=== PATIENT | female | born 1955 | race Caucasian/White ===

== ENCOUNTER → 2017-11-22 07:12 | Outpatient (CLI) | payer BC | END | disposition home or self-care (01) | LOC: D.RAD 07:12 | DX: D64.9 Anemia, unspecified (principal) ==

== ENCOUNTER → 2018-04-07 08:01 | Outpatient (CLI) | payer BC | END | disposition home or self-care (01) | LOC: D.CT 03-30 08:30 | DX: R10.9 Unspecified abdominal pain (principal); R93.8 Abnormal findings on diagnostic imaging of other specified body structures ==

== ENCOUNTER → 2018-04-12 17:08 | Outpatient (CLI) | payer BC ==
[2018-04-12 17:43] LABS: BASOPHILS 0.3 % (0-2); EOSINOPHILS 1.9 % (0-7); HEMATOCRIT 33.9 % (36.0-48.0); HEMOGLOBIN 10.5 g/dL (12-16); IMMATURE GRANULOCYTES 0.1 % (0-5); LYMPHOCYTES 29.7 % (15-50); MCH 24.1 pg (26.0-34.0); MCV 77.9 fL (80.0-100.0); MONOCYTES 8.1 % (2-11); NEUTROPHILS 59.9 % (40-80); PLATELET COUNT 389 10x3/uL (130-400); RBC 4.35 10x6/uL (4.00-5.40)
[2018-04-12 17:56] LABS: ALBUMIN 3.3 g/dL (3.4-5.0); ALKALINE PHOSPHATASE 100 U/L (46-116); ALT (SGPT) 15 U/L (10-68); BILIRUBIN - TOTAL 0.28 mg/dL (0.2-1.3); CALC OSMOLALITY 275 mosm/kg (275-300); CALCIUM 8.6 mg/dL (8.5-10.1); CARBON DIOXIDE 30.1 mmol/L (21.0-32.0); CHLORIDE - SERUM 103 mmol/L (98-107); CREATININE - SERUM 0.7 mg/dL (0.6-1.3); GLUCOSE 88 mg/dL (74-106); POTASSIUM - SERUM 3.9 mmol/L (3.5-5.1); PROTEIN - SERUM 7.8 g/dL (6.4-8.2); SODIUM 138 mmol/L (136-145); UREA NITROGEN 16 mg/dL (7-18); eGFR NON AFRICAN AMERICAN 90 mL/min (90-120)
[2018-04-12 18:36] LABS: ERYTHROCYTE SEDIMENTATION RATE 8 mm/hr (0-30)
== END | disposition home or self-care (01) ==
LOC: D.LAB 10:15
PROVIDERS: Internal Medicine Gastroenterology
DX: K52.9 Noninfective gastroenteritis and colitis, unspecified (principal); R10.9 Unspecified abdominal pain

== ENCOUNTER 2018-06-07 05:11 | Inpatient (IN) | payer BC ==
[~2018-06-07] VITALS: Ht 157.5 cm; Wt 114.2 kg
[2018-06-07] VITALS (15 sets, daily range): BP systolic 78–127; BP diastolic 43–88; BMI 38.8; BMI 39.6
--- NOTE | ~2018-06-07 | MORECARE ---
CASE MANAGEMENT DISCHARGE SUMMARY PATIENT: AUTUMN DEY UNIT: [id number] ADM DATE: 06/07/18 AGE: 63 : 55 SEX: F ROOM/BED: D.2227 AUTHOR: SHWETHA,DOC PHYSICIAN: REFERRING PHYSICIAN: ELLIOTT ODONNELL MD DATE OF SERVICE: 06/19/18 Discharge Plan Patient Name: AUTUMN DEY Facility: [facility]:[place] : 1955 Planned Disposition: Home with Home Health Anticipated Discharge Date: Discharge Date: Expected LOS: Initial Reviewer: [email or web address] Initial Review Date: 06/12/2018 Generated: 06/19/18 12:00 pm Comments DCP- Discharge Planning Updated by [email or web address]: Juany Garrido on 06/19/18 9:[address] Received order for discharge. Her sister is in the room. Patient and sister agree with discharging home today with [facility] health services. I spoke with Linda at [facility] and informed. I spoke with Deepthi with wound care and she will change dressing and place home wound vac prior to discharge. CM will continue to follow and assist with discharge planning/needs. To discharge home today with home health. DCP- Discharge Planning Updated by [email or web address]: Juany Garrido on 06/13/18 1:[address] Received approval for home wound vac. Copy of form given to patient, patient signed original. Called [employer] in materials called for home wound vac (serial number [id number]. Form faxed to [facility] and materials. CM will continue to follow and assist with discharge planning/needs. DCP- Discharge Planning Updated by [email or web address]: Teresita Cardoso on 06/12/18 3:[address] Patient Name: AUTUMN DEY Admission Status: Elective Accout number: [id number] Admission Date: 06-07-2018 : 1955 Admission Diagnosis: Attending: ELLIOTT ODONNELL Current LOS: 5 Anticipated DC Date: Planned Disposition: Home with Home Health Primary Insurance: [employer] O Discharge Planning Comments: CM met with patient to assess discharge planning needs. Patient stated that she lives home alone independently in [place]. She plans to return there at discharge, but stated that her sister will be there to stay with her when she DC. She has a glucometer at home. She will need a home wound vac. I have sent the paperwork to Hernan with [facility]. MAYLIN for home health with [facility]. MAYLIN form placed in chart. I spoke with Linda at [facility] they will put her on for services to start service on Tuesday. CM will continue to follow and assist with DC planning as needed. Ginger Farmer: Teresita Cardoso DCP- Discharge Planning Updated by [email or web address]: Teresita Cardoso on 06/12/18 2:[address] SENT CLINICAL INFORMATION AND ORDER TO [facility] FOR HOME WOUND VAC, PER DR BYRD REQUEST DCPIA - Discharge Planning Initial Assessment Updated by [email or web address]: Teresita Cardoso on 06/12/18 3:07 pm * Is the patient Alert and Oriented? Yes * How many steps to enter\exit or inside your home? * PCP ED * Pharmacy [facility] IN [place] * Preadmission Environment Home Alone * ADLs Independent * Equipment Glucometer * List name and contact numbers for known caregivers / representatives who currently or will assist patient after discharge: ARIS VIERA [phone] * Community resources currently utilized None * Additional services required to return to the preadmission environment? Yes * Can the patient safely return to the preadmission environment? Yes * Has this patient been hospitalized within the prior 30 days at any hospital? No Last DP export: 06/13/18 1:18 Patient Name: AUTUMN DEY Page [id number] at 1100 All edits/amendments must be made on the electronic document DICTATION DATE: 06/19/18 1100 RESIDENTIAL COUNSELOR: OMAYRA 06/19/18 1100 RPT#: [id number] DC DATE: STATUS: ADM IN [facility] [address] [place] [address] END OF REPORT
--- NOTE | ~2018-06-07 | OP ---
PATIENT NAME: AUTUMN DEY MEDICAL RECORD: [id number] :55 LOCATION:[facility] D.2308 ADMISSION DATE:06/07/18 SURGEON: ELLIOTT ODONNELL MD DATE OF OPERATION: 06/07/2018 SURGEON: Elliott Odonnell MD ELECTRICAL ENGINEERING INTERN: Jaja Quintanilla APN PREOPERATIVE DIAGNOSES: Abdominal pain, adhesions, history of multiple incisional hernia repairs. 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 PROCEDURE PERFORMED: Exploratory laparotomy, small bowel resection times 3, explantation of infected mesh, temporary abdominal closure with ABThera wound VAC, gastrostomy tube placement. ANESTHESIA: General. COMPLICATIONS: None. SPECIMENS: Small bowel resection times 3, explantation of infected abdominal wall mesh. Case was grossly contaminated. ESTIMATED BLOOD LOSS: 400 cc. OPERATIVE COURSE: After consent was obtained, the patient was taken to the operating room and placed in supine position on the operating table. Next, general anesthesia was given via endotracheal intubation. Thereafter a timeout was performed to confirm the correct patient and procedure. Abdomen was prepped and draped in typical sterile fashion. Ioban dressing was placed. Midline incision was made with an 11-blade scalpel in the lower midline from the umbilicus to the pubic tubercle. Dissection continued to subcutaneous tissue using electrocautery. Once the fascia was identified, an incision was made with electrocautery. The peritoneum was incised and grasped and incised with Metzenbaum scissors. The main portion of the incision was then opened with electrocautery. Extensive lysis of adhesions was performed. Immediately encountered was pus and succuss. There was a large well encased abscess with small bowel fistula to the abdominal wall mesh. There were 4 areas of easily identifiable fistula to the abdominal wall mesh. The mesh was meticulously dissected off the anterior abdominal wall using sharp scissor dissection. The abscess pocket was drained. The mesh was excised from the small bowel and sent for permanent pathology. At this time, extensive lysis of adhesions was performed from the ligament of Treitz to the ileocecal valve. Once the bowel was mobilized and extracorporealized, the large fistula was evaluated. There were 3 loops of bowel involved within the fistula with open fistula tracts. At this time, small bowel resections were performed in series until the area of fistula bowel was completely excised. The patient had a total of 3 small bowel resections, totaling 75 cm of small bowel. At this time, the small bowel was run from the ligament of Treitz to the ileocecal valve. All serosal defects were repaired. All small bowel anastomosis had been performed with the linear OPERATIVE REPORT [id number] AUTUMN DEY cutting KEVIN stapler with green load janine in a [id number] fashion. All anastomotic suture lines were imbricated using 3-0 Vicryl suture. All serosal defects were repaired using 3-0 Vicryl suture. The abdomen was then copiously irrigated with saline and iodine. It was further washed out with an additional 3 liters of warm normal saline. There was no evidence of bleeding, no evidence of succuss. At this time, a gastrostomy tube was placed into the left upper quadrant. Small stab skin incision was made with electrocautery. An 18-Serbian gastrostomy tube was delivered to the anterior abdominal wall under direct vision. A gastrotomy was made. A pursestring suture was made with an 0 silk suture. The tube was passed through the gastrotomy. The pursestring suture was tied. The balloon was inflated. The anterior portion of the stomach was then sutured to the anterior abdominal wall using 0 silk suture. At this time, due to the extensive contamination throughout the abdominal cavity as well as open small bowel fistulas with active succuss in the abdominal cavity, it was decided to perform a delayed abdominal closure. The abdomen was packed with the ABThera open VAC wound system. The patient was transferred to the ICU in critical condition with plans for a return trip to the OR in 24 hours for delayed abdominal closure and additional abdominal washout. TRANSINT:[id number] Voice Confirmation ID: [id number] DOCUMENT ID: [id number] ELLIOTT ODONNELL MD at 1412 CC: [id number] DICTATION DATE: 06/07/18 1248 POINT OF SALE ASSOCIATE: 06/07/18 1306 ADM IN [place] [id number] [place] [address]
--- NOTE | ~2018-06-07 | MORECARE ---
CASE MANAGEMENT DISCHARGE SUMMARY PATIENT: AUTUMN DEY UNIT: [id number] ADM DATE: 06/07/18 AGE: 63 : 55 SEX: F ROOM/BED: D.2227 AUTHOR: JENNY TADEO PHYSICIAN: REFERRING PHYSICIAN: ELLIOTT ODONNELL MD DATE OF SERVICE: 06/12/18 Discharge Plan Patient Name: AUTUMN DEY [facility] [facility] 1955 Planned Disposition: Anticipated Discharge Date: Discharge Date: Expected LOS: Initial Reviewer: [email or web address] Initial Review Date: 06/07/2018 Generated: 06/12/18 3:30 pm Comments DCP- Discharge Planning Updated by [email or web address]: Teresita Cardoso on 06/12/18 1:[address] SENT CLINICAL INFORMATION AND ORDER TO [facility] FOR HOME WOUND VAC, PER DR BYRD REQUEST External Providers External Provider: [facility] [employer] Next Contact Date: Service Request Date: Service Type: Resolution: Reviewer: Comments: Last DP export: 06/07/18 2:19 Patient Name: AUTUMN DEY Page 90970 at 1430 All edits/amendments must be made on the electronic document DICTATION DATE: 06/12/181428 ACADEMIC COUNSELOR: OMAYRA 06/12/181428 RPT#: [id number] DC DATE: STATUS: ADM IN [facility] [address] [place] [address] END OF REPORT
--- NOTE | ~2018-06-07 | DS ---
PATIENT:AUTUMN DEY :55 MEDICAL RECORD: [id number] DISCHARGE SUMMARY ADMISSION DATE: 06/07/18 DISCHARGE DATE: 06/19/18 DATE OF ADMISSION: 06/07/2018 DATE OF DISCHARGE: 06/19/2018 ADMITTING PHYSICIAN: Elliott Odonnell MD DISCHARGE PHYSICIAN: Elliott Odonnell MD ADMITTING DIAGNOSES: Ventral incisional abdominal hernia, incarcerated. POSTOPERATIVE DIAGNOSIS: Recurrent incarcerated ventral hernia and multiple enteric fistula. DISCHARGE DIAGNOSES: 1. Sepsis. 2. 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 3. Post-procedure respiratory failure. 4. Intestinal fistula. 5. Acute kidney injury. 6. Diabetes. HOSPITAL COURSE: The patient was admitted to the hospital for an elective incisional hernia repair. During the operation, the patient was found to have an intra-abdominal abscess contained abscess with open draining enteric fistulas of the small bowel to the abdominal wall hernia mesh. Please see procedure notes for full details of the procedure. In short, there was explantation of infected mesh, small bowel resection times 4 to incorporate resection of all open draining enteric fistula. During the operation Strata Phasix onlay mesh was used for closure of the midline abdominal incisional defect. A wound VAC was placed. A feeding tube was placed. The patient was transferred to the ICU on the ventilator in stable condition. Her postoperative course was without complication. Over the next 48 hours, she was extubated. She was subsequently transferred to the floor. Postoperative CT scan showed no signs of abscess or leak. She was started on a clear liquid diet and advance as tolerated. She was seen and evaluated by physical therapy. She was treated with IV antibiotics. Nephrology was consulted for an acute kidney injury which resolved with IV fluid hydration and discontinuation and nephrotoxic medications. At the time of discharge, the patient was ambulating independently. Her pain was well controlled on oral pain medicines. She was tolerating her diet with normal bowel function. Home health was consulted for home health PT and wound VAC care. DISCHARGE MEDICATIONS: Please see electronic medical record. DISCHARGE INSTRUCTIONS: Diet as tolerated. DISCHARGE ACTIVITY: No heavy lifting or strenuous activity for 6 weeks. Otherwise, activity as tolerated. Stairs allowed. DISPOSITION: Home health for wound VAC placement. Tuesday, Tuesday, Tuesday. DISCHARGE SUMMARY REPORT [id number] AUTUMN DEY FOLLOWUP: With Dr. Odonnell in 2 weeks. TRANSINT:[id number] Voice Confirmation ID: [id number] DOCUMENT ID: [id number] ELLIOTT ODONNELL MD at 1019 CC: [id number] DICTATION DATE: 07/03/18 1333 [employer]: 07/04/18 0152 DIS IN 06/19/18 [facility] [address] [place] [id number]
--- NOTE | ~2018-06-07 | MORECARE ---
CASE MANAGEMENT DISCHARGE SUMMARY PATIENT: AUTUMN DEY UNIT: [id number] ADM DATE: 06/07/18 AGE: 63 : 55 SEX: F ROOM/BED: D.2308 AUTHOR: JENNY TADEO PHYSICIAN: REFERRING PHYSICIAN: ELLIOTT ODONNELL MD DATE OF SERVICE: 06/07/18 Discharge Plan Patient Name: AUTUMN DEY [facility] [facility] 1955 Planned Disposition: Anticipated Discharge Date: Discharge Date: Expected LOS: Initial Reviewer: [email or web address] Initial Review Date: 06/07/2018 Generated: 06/07/18 4:19 pm Patient Name: AUTUMN DEY Page 39193 at 1519 All edits/amendments must be made on the electronic document DICTATION DATE: 06/07/181517 GLOVE PARTS CUTTER: OMAYRA 06/07/181517 RPT#: [id number] DC DATE: STATUS: ADM IN [facility] [address] [place] [address] END OF REPORT
--- NOTE | ~2018-06-07 | MORECARE ---
CASE MANAGEMENT DISCHARGE SUMMARY PATIENT: AUTUMN DEY UNIT: [id number] ADM DATE: 06/07/18 AGE: 63 : 55 SEX: F ROOM/BED: D.2227 AUTHOR: SHWETHA,DOC PHYSICIAN: REFERRING PHYSICIAN: ELLIOTT ODONNELL MD DATE OF SERVICE: 06/20/18 Discharge Plan Patient Name: AUTUMN DEY Facility: [facility]:[place] : 1955 Planned Disposition: Home with Home Health Anticipated Discharge Date: Discharge Date: 06/19/2018 Expected LOS: 0 Initial Reviewer: [email or web address] Initial Review Date: 06/12/2018 Generated: 06/20/18 10:09 am Comments DCP- Discharge Planning Updated by [email or web address]: Juany Garrido on 06/19/18 9:[address] Received order for discharge. Her sister is in the room. Patient and sister agree with discharging home today with [facility] health services. I spoke with Linda at [facility] and informed. I spoke with Deepthi with wound care and she will change dressing and place home wound vac prior to discharge. CM will continue to follow and assist with discharge planning/needs. To discharge home today with home health. DCP- Discharge Planning Updated by [email or web address]: Juany Moonjennifer on 06/13/18 1:[address] Received approval for home wound vac. Copy of form given to patient, patient signed original. Called [employer] in materials called for home wound vac (serial number [id number]. Form faxed to [facility] and [employer]. CM will continue to follow and assist with discharge planning/needs. DCP- Discharge Planning Updated by [id number]: Teresita Cardoso on 06/12/18 3:[address] Patient Name: AUTUMN DEY Admission Status: Elective Accout number: [id number] Admission Date: 06-07-2018 : 1955 Admission Diagnosis: Attending: ELLIOTT ODONNELL Current LOS: 5 Anticipated DC Date: Planned Disposition: Home with Home Health Primary Insurance: [employer] [facility] Discharge Planning Comments: CM met with patient to assess discharge planning needs. Patient stated that she lives home alone independently in [place]. She plans to return there at discharge, but stated that her sister will be there to stay with her when she DC. She has a glucometer at home. She will need a home wound vac. I have sent the paperwork to Hernan with [facility]. [place] for home health with [facility]. MAYLIN form placed in chart. I spoke with Linda at [facility] they will put her on for services to start service on Tuesday. CM will continue to follow and assist with DC planning as needed. Pattern Hand: Teresita Cardoso DCP- Discharge Planning Updated by [email or web address]: Teresita Cardoso on 06/12/18 2:[address] SENT CLINICAL INFORMATION AND ORDER TO [facility] FOR HOME WOUND VAC, PER DR BYRD REQUEST DCPIA - Discharge Planning Initial Assessment Updated by [email or web address]: Teresita Cardoso on 06/12/18 3:07 pm * Is the patient Alert and Oriented? Yes * How many steps to enter\exit or inside your home? * PCP ED * Pharmacy [facility] IN [place] * Preadmission Environment Home Alone * ADLs Independent * Equipment Glucometer * List name and contact numbers for known caregivers / representatives who currently or will assist patient after discharge: ARIS VIERA [phone] * Community resources currently utilized None * Additional services required to return to the preadmission environment? Yes * Can the patient safely return to the preadmission environment? Yes * Has this patient been hospitalized within the prior 30 days at any hospital? No Last DP export: 06/19/18 10:00 a Patient Name: AUTUMN DEY Page 49565 at 0910 All edits/amendments must be made on the electronic document DICTATION DATE: 06/20/18908 RUBBER MILL TENDER: OMAYRA 06/20/18908 RPT#: [id number] DC DATE:06/19/18 STATUS: DIS IN [facility] [address] [place] [address] END OF REPORT
--- NOTE | ~2018-06-07 | OP ---
PATIENT NAME: AUTUMN DEY MEDICAL RECORD: [id number] :55 LOCATION:[facility] D.2308 ADMISSION DATE:06/07/18 SURGEON: ELLIOTT ODONNELL MD DATE OF OPERATION: 06/08/2018 SURGEON: Elliott Odonnell MD PREOPERATIVE DIAGNOSES: 1. Open abdomen. 2. History of multiple enteric fistulas with intra-abdominal sepsis. POSTOPERATIVE DIAGNOSES: 1. Open abdomen. 2. History of multiple enteric fistulas with intra-abdominal sepsis. PROCEDURES PERFORMED: 1. Abdominal washout. 2. Removal of ABThera wound VAC. 3. Delayed primary abdominal wall closure with Phasix mesh. Case was clean. ESTIMATED BLOOD LOSS: 100 cc. OPERATIVE COURSE: After consent was obtained, the patient was taken from the ICU, ventilated to the operating room and placed in supine position on the operating table. General anesthesia was given. A time-out was taken to confirm the correct patient and procedure. The ABThera wound VAC was removed. The abdomen was prepped and draped in a typical sterile fashion. A time-out was taken to confirm the correct patient and procedure. The wound was then copiously irrigated with 4 liters of warm normal saline. The small bowel was run from the ligament of Treitz to the ileocecal valve gently with meticulous inspection. There was no serosal defect. All previous small bowel anastomosis appeared intact. There was no evidence of succuss or leak. Next, 2 WILTON drains were placed into both the right and left lower quadrants. The left lower quadrant WILTON drain was placed into the pelvis. The right WILTON drain was placed along the right pericolic gutter and around the liver. At this time, the abdomen was irrigated with half Betadine, half normal saline. Next, the subcutaneous tissue was dissected off the external fascia 5 cm in all directions creating subcutaneous tissue flaps. A FISH was inserted. The midline fascia was closed with #1 looped PDS. A WILTON drain was secured to skin using 2-0 nylon suture. A 4 x 6-inch Phasix mesh was placed in an onlay fashion onto the anterior fascia and secured with 3-0 Vicryl suture. The skin was reapproximated using janine. A small portion in the midline was left open. A silver sponge was placed through the opening and directly onto the mesh. It was placed to suction with good seal. The WILTON drains were connected to bulb suction. At the end the case, all needle and instrument counts were correct. The patient was transferred to the ICU in guarded condition. TRANSINT:[id number] Voice Confirmation ID: [id number] DOCUMENT ID: [id number] OPERATIVE REPORT [id number] AUTUMN DEY,ELLIOTT Landaverde MD at 2126 CC: [id number] DICTATION DATE: 06/08/18 1351 VISUAL DISPLAY MANAGER: 06/08/18 1407 ADM IN [place] [id number] [place] [id number]
--- NOTE | ~2018-06-07 | MORECARE ---
CASE MANAGEMENT DISCHARGE SUMMARY PATIENT: AUTUMN DEY UNIT: [id number] ADM DATE: 06/07/18 AGE: 63 : 55 SEX: F ROOM/BED: D.2227 AUTHOR: SHWETHA,DOC PHYSICIAN: REFERRING PHYSICIAN: ELLIOTT ODONNELL MD DATE OF SERVICE: 06/12/18 Discharge Plan Patient Name: AUTUMN DEY Facility: [facility]:[place] : 1955 Planned Disposition: Home with Home Health Anticipated Discharge Date: Discharge Date: Expected LOS: Initial Reviewer: [email or web address] Initial Review Date: 06/12/2018 Generated: 06/12/18 4:12 pm Comments DCP- Discharge Planning Updated by [id number]: Teresita Cardoso on 06/12/18 2:[address] Patient Name: AUTUMN DEY Admission Status: Elective Accout number: [id number] Admission Date: 06-07-2018 : 1955 Admission Diagnosis: Attending: ELLIOTT ODONNELL Current LOS: 5 Anticipated DC Date: Planned Disposition: Home with Home Health Primary Insurance: [employer] O Discharge Planning Comments: CM met with patient to assess discharge planning needs. Patient stated that she lives home alone independently in [place]. She plans to return there at discharge, but stated that her sister will be there to stay with her when she DC. She has a glucometer at home. She will need a home wound vac. I have sent the paperwork to [facility] with [facility]. [facility] for home health with [facility]. MAYLIN form placed in chart. I spoke with Linda at [facility] they will put her on for services to start service on Tuesday. CM will continue to follow and assist with DC planning as needed. Family Educator: Teresita Cardoso DCP- Discharge Planning Updated by [email or web address]: Teresita Cardoso on 06/12/18 1:[address] SENT CLINICAL INFORMATION AND ORDER TO [facility] FOR HOME WOUND VAC, PER DR BYRD REQUEST DCPIA - Discharge Planning Initial Assessment Updated by [email or web address]: Teresita Cardoos on 06/12/18 3:07 pm * Is the patient Alert and Oriented? Yes * How many steps to enter\exit or inside your home? * PCP ED * Pharmacy [facility] IN [place] * Preadmission Environment Home Alone * ADLs Independent * Equipment Glucometer * List name and contact numbers for known caregivers / representatives who currently or will assist patient after discharge: ARIS VIERA [phone] * Community resources currently utilized None * Additional services required to return to the preadmission environment? Yes * Can the patient safely return to the preadmission environment? Yes * Has this patient been hospitalized within the prior 30 days at any hospital? No External Providers External Provider: [employer] Next Contact Date: Service Request Date: Service Type: Resolution: Reviewer: Comments: Last DP export: 06/12/18 1:30 Patient Name: AUTUMN DEY Page 78021 at 1512 All edits/amendments must be made on the electronic document DICTATION DATE: 06/12/181511 REINFORCED IRONWORKER: OMAYRA 06/12/181511 RPT#: [id number] DC DATE: STATUS: ADM IN [facility] [address] [place] [address] END OF REPORT
--- NOTE | ~2018-06-07 | MORECARE ---
CASE MANAGEMENT DISCHARGE SUMMARY PATIENT: AUTUMN DEY UNIT: [id number] ADM DATE: 06/07/18 AGE: 63 : 55 SEX: F ROOM/BED: D.2227 AUTHOR: SHWETHA,DOC PHYSICIAN: REFERRING PHYSICIAN: ELLIOTT ODONNELL MD DATE OF SERVICE: 06/13/18 Discharge Plan Patient Name: AUTUMN DEY Facility: [facility]:[place] : 1955 Planned Disposition: Home with Home Health Anticipated Discharge Date: Discharge Date: Expected LOS: Initial Reviewer: [email or web address] Initial Review Date: 06/12/2018 Generated: 06/13/18 2:18 pm Comments DCP- Discharge Planning Updated by [email or web address]: Juany Garrido on 06/13/18 12:[address] Received approval for home wound vac. Copy of form given to patient, patient signed original. Called [employer] called for home wound vac (serial number [id number]. Form faxed to [facility] and [employer]. CM will continue to follow and assist with discharge planning/needs. DCP- Discharge Planning Updated by [email or web address]: Teresita Cardoso on 06/12/18 2:[address] Patient Name: AUTUMN DEY Admission Status: Elective Accout number: [id number] Admission Date: 06-07-2018 : 1955 Admission Diagnosis: Attending: ELLIOTT ODONNELL Current LOS: 5 Anticipated DC Date: Planned Disposition: Home with Home Health Primary Insurance: [employer] [facility] [place]charge Planning Comments: CM met with patient to assess discharge planning needs. Patient stated that she lives home alone independently in [place]. She plans to return there at discharge, but stated that her sister will be there to stay with her when she DC. She has a glucometer at home. She will need a home wound vac. I have sent the paperwork to Hernan with [facility]. [place] for home health with [facility]. [facility] form placed in chart. I spoke with Linda at [facility] they will put her on for services to start service on Tuesday. CM will continue to follow and assist with DC planning as needed. Director Visual: Teresita Cardoso DCP- Discharge Planning Updated by [email or web address]: Teresita Cardoso on 06/12/18 1:[address] SENT CLINICAL INFORMATION AND ORDER TO [facility] FOR HOME WOUND VAC, PER DR BYRD REQUEST DCPIA - Discharge Planning Initial Assessment Updated by [email or web address]: Teresita Cardoso on 06/12/18 3:07 pm * Is the patient Alert and Oriented? Yes * How many steps to enter\exit or inside your home? * PCP ED * Pharmacy [facility] IN [place] * Preadmission Environment Home Alone * ADLs Independent * Equipment Glucometer * List name and contact numbers for known caregivers / representatives who currently or will assist patient after discharge: ARIS VIERA [phone] * Community resources currently utilized None * Additional services required to return to the preadmission environment? Yes * Can the patient safely return to the preadmission environment? Yes * Has this patient been hospitalized within the prior 30 days at any hospital? No Last DP export: 06/12/18 2:12 Patient Name: AUTUMN DEY Page [id number] at 1318 All edits/amendments must be made on the electronic document DICTATION DATE: 06/13/18 131 SUPERVISOR ACCOUNTING CLERKS: OMAYRA 06/13/18 131 RPT#: [id number] [place] DATE: STATUS: ADM IN [facility] [address] [place] [address] END OF REPORT
[~2018-06-07 05:11] MED LIST: AREDS PO; ASCORBIC ACID500 MG PO; CALCIUM 600 +1 EAC3 PO; FERREX 28 TABL1 EACH PO; GLUCOPHAGE500 MG PO; RANITIDINE HCL150 M1 PO; SYNTHROID112 MCG PO; TUMERIC PO; VITAMIN B-121000 MCG PO; ZESTORETIC 20-1 EACH PO; ZOCOR40 MG PO
[2018-06-07 05:29] LABS: HEMATOCRIT 37.9 % (36.0-48.0); HEMOGLOBIN 12.1 g/dL (12-16); MCH 26.4 pg (26.0-34.0); MCHC 31.9 g/dL (31.0-37.0); MCV 82.6 fL (80.0-100.0); RBC 4.59 10x6/uL (4.00-5.40); RDW 19.7 % (11.5-14.5); WBC 12.5 10x3/uL (4.8-10.8)
[2018-06-07 05:51] LABS: CALC OSMOLALITY 278 mosm/kg (275-300); CALCIUM 9.6 mg/dL (8.5-10.1); CARBON DIOXIDE 28.8 mmol/L (21.0-32.0); CHLORIDE - SERUM 101 mmol/L (98-107); CREATININE - SERUM 0.8 mg/dL (0.6-1.3); POTASSIUM - SERUM 4.2 mmol/L (3.5-5.1); SODIUM 139 mmol/L (136-145); UREA NITROGEN 9 mg/dL (7-18); eGFR NON AFRICAN AMERICAN 77 mL/min (90-120)
[2018-06-07 05:58] LABS: GLUCOSE 143 mg/dL (74-106)
[2018-06-08] VITALS (23 sets, daily range): BP systolic 87–119; BP diastolic 56–666; BMI 39.5
[2018-06-08 04:12] LABS: HEMATOCRIT 37.2 % (36.0-48.0); HEMOGLOBIN 11.7 g/dL (12-16); MCH 26.5 pg (26.0-34.0); MCHC 31.5 g/dL (31.0-37.0); MCV 84.2 fL (80.0-100.0); MEAN PLATELET VOLUME 9.3 fL (7.4-10.4); PLATELET COUNT 470 10x3/uL (130-400); RBC 4.42 10x6/uL (4.00-5.40); RDW 20.1 % (11.5-14.5); WBC 22.9 10x3/uL (4.8-10.8)
[2018-06-08 04:32] LABS: ALBUMIN 1.7 g/dL (3.4-5.0); ANION GAP 18.6 mmol/L (8-16); BILIRUBIN - TOTAL 0.46 mg/dL (0.2-1.3); CALCIUM 7.2 mg/dL (8.5-10.1); CARBON DIOXIDE 23.2 mmol/L (21.0-32.0); MAGNESIUM - SERUM 1.5 mg/dL (1.8-2.4); PHOSPHOROUS 4.1 mg/dL (2.5-4.9); POTASSIUM - SERUM 4.8 mmol/L (3.5-5.1); PROTEIN - SERUM 4.7 g/dL (6.4-8.2)
[2018-06-08 04:33] LABS: CREATININE - SERUM 1.1 mg/dL (0.6-1.3)
[2018-06-08 05:13] LABS: LYMPHOCYTES 21 % (15-50); MONOCYTES 5 % (2-11); NEUTROPHILS 55 % (40-80); PLATELET ESTIMATE NORMAL
[2018-06-09] VITALS (24 sets, daily range): BP systolic 90–119; BP diastolic 60–94
[2018-06-09 04:41] LABS: BASOPHILS 0.1 % (0-2); EOSINOPHILS 0.1 % (0-7); HEMATOCRIT 30.5 % (36.0-48.0); HEMOGLOBIN 9.4 g/dL (12-16); IMMATURE GRANULOCYTES 0.5 % (0-5); LYMPHOCYTES 7.8 % (15-50); MCH 25.5 pg (26.0-34.0); MCHC 30.8 g/dL (31.0-37.0); MCV 82.9 fL (80.0-100.0); MEAN PLATELET VOLUME 9.2 fL (7.4-10.4); MONOCYTES 2.7 % (2-11); NEUTROPHILS 88.8 % (40-80); RBC 3.68 10x6/uL (4.00-5.40); RDW 20.5 % (11.5-14.5); WBC 19.7 10x3/uL (4.8-10.8)
[2018-06-09 04:46] LABS: PLATELET COUNT 351 10x3/uL (130-400)
[2018-06-09 04:59] LABS: CALC OSMOLALITY 288 mosm/kg (275-300); CALCIUM 7.3 mg/dL (8.5-10.1); CARBON DIOXIDE 25.3 mmol/L (21.0-32.0); CHLORIDE - SERUM 111 mmol/L (98-107); GLUCOSE 156 mg/dL (74-106); SODIUM 144 mmol/L (136-145); UREA NITROGEN 11 mg/dL (7-18)
[2018-06-09 05:02] LABS: CREATININE - SERUM 0.8 mg/dL (0.6-1.3); MAGNESIUM - SERUM 2.1 mg/dL (1.8-2.4); PHOSPHOROUS 2.3 mg/dL (2.5-4.9); eGFR NON AFRICAN AMERICAN 77 mL/min (90-120)
[2018-06-10] VITALS (24 sets, daily range): BP systolic 92–168; BP diastolic 58–94
[2018-06-10 05:20] LABS: BASOPHILS 0.1 % (0-2); EOSINOPHILS 0.9 % (0-7); HEMATOCRIT 25.6 % (36.0-48.0); HEMOGLOBIN 7.9 g/dL (12-16); IMMATURE GRANULOCYTES 0.4 % (0-5); LYMPHOCYTES 9.2 % (15-50); MCH 25.7 pg (26.0-34.0); MCHC 30.9 g/dL (31.0-37.0); MCV 83.4 fL (80.0-100.0); MEAN PLATELET VOLUME 9.2 fL (7.4-10.4); NEUTROPHILS 86.4 % (40-80); PLATELET COUNT 319 10x3/uL (130-400); RBC 3.07 10x6/uL (4.00-5.40); RDW 20.5 % (11.5-14.5); WBC 17.5 10x3/uL (4.8-10.8)
[2018-06-10 05:33] LABS: CALC OSMOLALITY 287 mosm/kg (275-300); CALCIUM 7.8 mg/dL (8.5-10.1); CARBON DIOXIDE 26.3 mmol/L (21.0-32.0); CHLORIDE - SERUM 112 mmol/L (98-107); CREATININE - SERUM 0.7 mg/dL (0.6-1.3); GLUCOSE 141 mg/dL (74-106); POTASSIUM - SERUM 3.8 mmol/L (3.5-5.1); SODIUM 144 mmol/L (136-145); UREA NITROGEN 11 mg/dL (7-18); eGFR NON AFRICAN AMERICAN 90 mL/min (90-120)
[2018-06-11] VITALS (24 sets, daily range): BP systolic 113–157; BP diastolic 71–97
[2018-06-11 04:53] LABS: BASOPHILS 0.1 % (0-2); EOSINOPHILS 1.2 % (0-7); HEMATOCRIT 25.5 % (36.0-48.0); HEMOGLOBIN 7.8 g/dL (12-16); IMMATURE GRANULOCYTES 0.4 % (0-5); MCH 25.4 pg (26.0-34.0); MCHC 30.6 g/dL (31.0-37.0); MCV 83.1 fL (80.0-100.0); MONOCYTES 5.8 % (2-11); NEUTROPHILS 80.5 % (40-80); PLATELET COUNT 304 10x3/uL (130-400); RBC 3.07 10x6/uL (4.00-5.40); RDW 20.2 % (11.5-14.5); WBC 14.1 10x3/uL (4.8-10.8)
[2018-06-11 05:02] LABS: CALC OSMOLALITY 287 mosm/kg (275-300); CALCIUM 7.9 mg/dL (8.5-10.1); CARBON DIOXIDE 28.4 mmol/L (21.0-32.0); CHLORIDE - SERUM 112 mmol/L (98-107); CREATININE - SERUM 0.7 mg/dL (0.6-1.3); GLUCOSE 112 mg/dL (74-106); MAGNESIUM - SERUM 1.9 mg/dL (1.8-2.4); POTASSIUM - SERUM 3.7 mmol/L (3.5-5.1); SODIUM 145 mmol/L (136-145); eGFR NON AFRICAN AMERICAN 90 mL/min (90-120)
[2018-06-11 05:05] LABS: PHOSPHOROUS 3.5 mg/dL (2.5-4.9); UREA NITROGEN 7 mg/dL (7-18)
[2018-06-12] VITALS (14 sets, daily range): BP systolic 97–168; BP diastolic 59–82
[2018-06-12 05:48] LABS: BASOPHILS 0.1 % (0-2); EOSINOPHILS 2.9 % (0-7); HEMATOCRIT 24.5 % (36.0-48.0); HEMOGLOBIN 7.6 g/dL (12-16); IMMATURE GRANULOCYTES 1.3 % (0-5); MCH 25.8 pg (26.0-34.0); MCV 83.1 fL (80.0-100.0); MEAN PLATELET VOLUME 9.3 fL (7.4-10.4); MONOCYTES 7.5 % (2-11); NEUTROPHILS 76.2 % (40-80); PLATELET COUNT 326 10x3/uL (130-400); RBC 2.95 10x6/uL (4.00-5.40); RDW 19.9 % (11.5-14.5); WBC 12.6 10x3/uL (4.8-10.8)
[2018-06-12 05:57] LABS: CARBON DIOXIDE 28.4 mmol/L (21.0-32.0); CHLORIDE - SERUM 110 mmol/L (98-107); GLUCOSE 110 mg/dL (74-106); POTASSIUM - SERUM 3.6 mmol/L (3.5-5.1); SODIUM 144 mmol/L (136-145)
[2018-06-12 06:06] LABS: CALC OSMOLALITY 284 mosm/kg (275-300); CREATININE - SERUM 0.5 mg/dL (0.6-1.3); UREA NITROGEN 4 mg/dL (7-18); eGFR NON AFRICAN AMERICAN > 90 mL/min (90-120)
[2018-06-13 04:23] VITALS: BP 181/92
[2018-06-13 07:33] LABS: CALC OSMOLALITY 286 mosm/kg (275-300); CALCIUM 8.4 mg/dL (8.5-10.1); CARBON DIOXIDE 28.6 mmol/L (21.0-32.0); CHLORIDE - SERUM 107 mmol/L (98-107); CREATININE - SERUM 0.8 mg/dL (0.6-1.3); GLUCOSE 111 mg/dL (74-106); MAGNESIUM - SERUM 1.8 mg/dL (1.8-2.4); PHOSPHOROUS 4.4 mg/dL (2.5-4.9); POTASSIUM - SERUM 4.1 mmol/L (3.5-5.1); SODIUM 145 mmol/L (136-145); UREA NITROGEN 3 mg/dL (7-18); eGFR NON AFRICAN AMERICAN 77 mL/min (90-120)
[2018-06-13 07:49] LABS: BASOPHILS 0.2 % (0-2); EOSINOPHILS 2.4 % (0-7); HEMATOCRIT 28.3 % (36.0-48.0); HEMOGLOBIN 8.7 g/dL (12-16); IMMATURE GRANULOCYTES 2.2 % (0-5); LYMPHOCYTES 13.4 % (15-50); MCH 25.6 pg (26.0-34.0); MCHC 30.7 g/dL (31.0-37.0); MCV 83.2 fL (80.0-100.0); MEAN PLATELET VOLUME 9.4 fL (7.4-10.4); MONOCYTES 6.2 % (2-11); NEUTROPHILS 75.6 % (40-80); RDW 19.9 % (11.5-14.5)
[2018-06-13 08:18] LABS: PLATELET COUNT 431 10x3/uL (130-400); WBC 18.5 10x3/uL (4.8-10.8)
[2018-06-13 09:57] VITALS: BP 153/89
[2018-06-13 13:58] VITALS: BP 134/76
[2018-06-13 17:01] VITALS: BP 171/82
[2018-06-13 20:00] VITALS: BP 159/77
[2018-06-14 06:00] VITALS: BP 166/88
[2018-06-14 06:04] LABS: BASOPHILS 0.2 % (0-2); EOSINOPHILS 1.7 % (0-7); HEMATOCRIT 25.3 % (36.0-48.0); IMMATURE GRANULOCYTES 2.4 % (0-5); LYMPHOCYTES 13.8 % (15-50); MCH 26.1 pg (26.0-34.0); MCHC 31.6 g/dL (31.0-37.0); MCV 82.4 fL (80.0-100.0); MEAN PLATELET VOLUME 9.4 fL (7.4-10.4); MONOCYTES 6.4 % (2-11); NEUTROPHILS 75.5 % (40-80); PLATELET COUNT 430 10x3/uL (130-400); RBC 3.07 10x6/uL (4.00-5.40); RDW 20.1 % (11.5-14.5); WBC 15.5 10x3/uL (4.8-10.8)
[2018-06-14 06:18] LABS: CALC OSMOLALITY 282 mosm/kg (275-300); CARBON DIOXIDE 29.1 mmol/L (21.0-32.0); CHLORIDE - SERUM 104 mmol/L (98-107); CREATININE - SERUM 0.8 mg/dL (0.6-1.3); GLUCOSE 122 mg/dL (74-106); MAGNESIUM - SERUM 1.8 mg/dL (1.8-2.4); SODIUM 143 mmol/L (136-145); UREA NITROGEN 3 mg/dL (7-18); eGFR NON AFRICAN AMERICAN 77 mL/min (90-120)
[2018-06-14 06:21] LABS: POTASSIUM - SERUM 3.4 mmol/L (3.5-5.1)
[2018-06-14 08:46] VITALS: BP 164/77
[2018-06-14 12:30] VITALS: BP 173/97
[2018-06-14 15:45] VITALS: BP 172/93
[2018-06-14 20:00] VITALS: BP 163/78
[2018-06-15 05:00] VITALS: BP 159/75
[2018-06-15 06:28] LABS: BASOPHILS 0.2 % (0-2); EOSINOPHILS 1.6 % (0-7); HEMATOCRIT 24.5 % (36.0-48.0); HEMOGLOBIN 7.6 g/dL (12-16); IMMATURE GRANULOCYTES 2.2 % (0-5); LYMPHOCYTES 11.7 % (15-50); MCH 25.9 pg (26.0-34.0); MCV 83.3 fL (80.0-100.0); MEAN PLATELET VOLUME 9.2 fL (7.4-10.4); MONOCYTES 6.7 % (2-11); NEUTROPHILS 77.6 % (40-80); PLATELET COUNT 418 10x3/uL (130-400); RBC 2.94 10x6/uL (4.00-5.40); RDW 20.1 % (11.5-14.5); WBC 12.8 10x3/uL (4.8-10.8)
[2018-06-15 07:12] LABS: ANION GAP 14.2 mmol/L (8-16); CALCIUM 7.7 mg/dL (8.5-10.1); POTASSIUM - SERUM 3.2 mmol/L (3.5-5.1); VANCOMYCIN - TROUGH 46.6 ug/mL (10.0-20.0)
[2018-06-15 07:13] LABS: CREATININE - SERUM 1.2 mg/dL (0.6-1.3)
[2018-06-15 09:32] VITALS: BP 164/82
[2018-06-15 21:35] VITALS: BP 190/82
[2018-06-16 04:45] LABS: BASOPHILS 0.1 % (0-2); EOSINOPHILS 2.6 % (0-7); HEMATOCRIT 26.6 % (36.0-48.0); HEMOGLOBIN 8.1 g/dL (12-16); IMMATURE GRANULOCYTES 1.9 % (0-5); LYMPHOCYTES 10.9 % (15-50); MCH 25.6 pg (26.0-34.0); MCHC 30.5 g/dL (31.0-37.0); MCV 83.9 fL (80.0-100.0); MEAN PLATELET VOLUME 9.5 fL (7.4-10.4); MONOCYTES 7.5 % (2-11); PLATELET COUNT 494 10x3/uL (130-400); RBC 3.17 10x6/uL (4.00-5.40); RDW 20.4 % (11.5-14.5); WBC 14.2 10x3/uL (4.8-10.8)
[2018-06-16 05:12] VITALS: BP 169/78
[2018-06-16 05:12] LABS: ANION GAP 11.7 mmol/L (8-16); CALCIUM 8.1 mg/dL (8.5-10.1); CARBON DIOXIDE 30.9 mmol/L (21.0-32.0); POTASSIUM - SERUM 3.6 mmol/L (3.5-5.1); VANCOMYCIN - RANDOM 27.4 ug/mL (10.0-20.0)
[2018-06-16 05:19] LABS: CREATININE - SERUM 1.7 mg/dL (0.6-1.3)
[2018-06-16 08:47] VITALS: BP 167/87
[2018-06-16 12:46] VITALS: BP 166/74
[2018-06-16 16:27] VITALS: BP 162/79
[2018-06-16 21:26] VITALS: BP 147/75
[2018-06-17 04:51] VITALS: BP 114/75
[2018-06-17 06:14] LABS: BASOPHILS 0.2 % (0-2); EOSINOPHILS 2.7 % (0-7); HEMATOCRIT 24.3 % (36.0-48.0); IMMATURE GRANULOCYTES 1.6 % (0-5); LYMPHOCYTES 11.9 % (15-50); MCH 25.9 pg (26.0-34.0); MCHC 30.5 g/dL (31.0-37.0); MEAN PLATELET VOLUME 9.6 fL (7.4-10.4); MONOCYTES 6.5 % (2-11); NEUTROPHILS 77.1 % (40-80); PLATELET COUNT 550 10x3/uL (130-400); RBC 2.86 10x6/uL (4.00-5.40); WBC 13.8 10x3/uL (4.8-10.8)
[2018-06-17 06:23] LABS: HEMOGLOBIN 7.4 g/dL (12-16)
[2018-06-17 06:56] LABS: ANION GAP 13.5 mmol/L (8-16); CALCIUM 7.4 mg/dL (8.5-10.1); CARBON DIOXIDE 26.3 mmol/L (21.0-32.0); POTASSIUM - SERUM 3.8 mmol/L (3.5-5.1); VANCOMYCIN - RANDOM 19.3 ug/mL (10.0-20.0)
[2018-06-17 09:35] VITALS: BP 142/69
[2018-06-17 11:36] VITALS: Ht 157.5 cm; Wt 114.2 kg
[2018-06-17 15:17] LABS: BASOPHILS 0.3 % (0-2); EOSINOPHILS 2.3 % (0-7); HEMATOCRIT 28.8 % (36.0-48.0); IMMATURE GRANULOCYTES 2.3 % (0-5); LYMPHOCYTES 11.7 % (15-50); MCH 26.3 pg (26.0-34.0); MCHC 31.3 g/dL (31.0-37.0); MCV 84.2 fL (80.0-100.0); MEAN PLATELET VOLUME 9.6 fL (7.4-10.4); MONOCYTES 5.2 % (2-11); NEUTROPHILS 78.2 % (40-80); PLATELET COUNT 568 10x3/uL (130-400); RBC 3.42 10x6/uL (4.00-5.40); RDW 19.7 % (11.5-14.5); WBC 14.9 10x3/uL (4.8-10.8)
[2018-06-17 16:30] VITALS: BP 132/64
[2018-06-17 20:39] VITALS: BP 186/89
[2018-06-18 00:20] VITALS: BP 174/8
[2018-06-18 05:02] VITALS: BP 162/75
[2018-06-18 06:41] LABS: BASOPHILS 0.2 % (0-2); EOSINOPHILS 1.6 % (0-7); HEMATOCRIT 27.4 % (36.0-48.0); HEMOGLOBIN 8.5 g/dL (12-16); IMMATURE GRANULOCYTES 0.9 % (0-5); LYMPHOCYTES 10.9 % (15-50); MCV 83.8 fL (80.0-100.0); MEAN PLATELET VOLUME 9.6 fL (7.4-10.4); MONOCYTES 6.7 % (2-11); NEUTROPHILS 79.7 % (40-80); PLATELET COUNT 587 10x3/uL (130-400); RBC 3.27 10x6/uL (4.00-5.40); WBC 16.7 10x3/uL (4.8-10.8)
[2018-06-18 07:07] LABS: ANION GAP 15.2 mmol/L (8-16); CALCIUM 7.6 mg/dL (8.5-10.1); CARBON DIOXIDE 24.8 mmol/L (21.0-32.0)
[2018-06-18 09:01] VITALS: BP 161/58
[2018-06-18 13:25] VITALS: BP 179/81
[2018-06-18 13:53] LABS: APPEARANCE CLEAR (CLEAR); COLOR YELLOW (YELLOW)
[2018-06-18 13:54] LABS: BILIRUBIN NEGATIVE (NEGATIVE); GLUCOSE NEGATIVE (NEGATIVE); KETONE NEGATIVE (NEGATIVE); NITRITE NEGATIVE (NEGATIVE); PROTEIN NEGATIVE (NEGATIVE); SPECIFIC GRAVITY 1.005 (1.005-1.020); UROBILINOGEN NORMAL (NORMAL)
[2018-06-18 13:59] LABS: CREATININE - URINE 20.1 mg/dL (30-125); PROTEIN - URINE 16.8 mg/dL (0.0-11.9)
[2018-06-18 18:21] VITALS: BP 177/79
[2018-06-18 20:50] VITALS: BP 152/75
[2018-06-19 01:20] VITALS: BP 173/85
[2018-06-19 04:54] LABS: BASOPHILS 0.2 % (0-2); EOSINOPHILS 1.2 % (0-7); HEMOGLOBIN 8.7 g/dL (12-16); IMMATURE GRANULOCYTES 0.8 % (0-5); LYMPHOCYTES 9.6 % (15-50); MCH 26.1 pg (26.0-34.0); MCHC 31.1 g/dL (31.0-37.0); MCV 84.1 fL (80.0-100.0); MEAN PLATELET VOLUME 9.3 fL (7.4-10.4); MONOCYTES 5.2 % (2-11); PLATELET COUNT 634 10x3/uL (130-400); RBC 3.33 10x6/uL (4.00-5.40); RDW 20.1 % (11.5-14.5); WBC 18.1 10x3/uL (4.8-10.8)
[2018-06-19 05:09] LABS: ANION GAP 14.6 mmol/L (8-16); CALCIUM 7.9 mg/dL (8.5-10.1); CARBON DIOXIDE 25.2 mmol/L (21.0-32.0)
[2018-06-19 05:13] LABS: POTASSIUM - SERUM 3.8 mmol/L (3.5-5.1)
[2018-06-19 05:28] VITALS: BP 175/87
[2018-06-19 08:24] VITALS: BP 166/82
[2018-06-19] MEDS ORDERED: HYDROCODON-ACE1 EAC7 PO (10:12)
[2018-06-19] MEDS ORDERED: DOXYCYCLINE HY100 M2 PO (10:12)
[2018-06-19] MEDS ORDERED: LEVAQUIN250 MG PO (10:15)
[2018-06-19 11:03] VITALS: BP 152/73
[2018-06-19 16:55] VITALS: BP 167/61
== END 2018-06-19 17:25 | disposition home health service (06) | DRG 907 ==
LOC: D.OPS 05:11 → D.MS 11:42 → D.ICU 11:42 → D.OPS 12:30 → D.MS 06-12 12:07 → D.SDCHOLD 06-19 09:24 → D.MS 06-19 09:25
PROVIDERS: Anesthesiology; Internal Medicine Nephrology; Surgery
PROC: 0BH17EZ Insertion of Endotracheal Airway into Trachea, Via Natural or Artificial Opening (ICD-10-PCS; 2018-06-07)
PROC: 5A1945Z Respiratory Ventilation, 24-96 Consecutive Hours (ICD-10-PCS; 2018-06-07)
PROC: 0DH63UZ Insertion of Feeding Device into Stomach, Percutaneous Approach (ICD-10-PCS; 2018-06-07)
PROC: 0DB80ZZ Excision of Small Intestine, Open Approach (ICD-10-PCS; 2018-06-07 08:00)
PROC: 0DNW0ZZ Release Peritoneum, Open Approach (ICD-10-PCS; 2018-06-07 08:00)
PROC: 0WPF0JZ Removal of Synthetic Substitute from Abdominal Wall, Open Approach (ICD-10-PCS; 2018-06-07 08:00)
PROC: 0WQF0ZZ Repair Abdominal Wall, Open Approach (ICD-10-PCS; 2018-06-08)
PROC: 0WQF0ZZ Repair Abdominal Wall, Open Approach (ICD-10-PCS; principal; 2018-06-08 12:00)
DX: T85.79XA Infection and inflammatory reaction due to other internal prosthetic devices, implants and grafts, initial encounter (principal); A41.9 Sepsis, unspecified organism; J95.821 Acute postprocedural respiratory failure; K65.1 Peritoneal abscess; K63.2 Fistula of intestine; E87.0 Hyperosmolality and hypernatremia; N17.9 Acute kidney failure, unspecified; N13.30 Unspecified hydronephrosis; E87.2 Acidosis; E11.40 Type 2 diabetes mellitus with diabetic neuropathy, unspecified; I10 Essential (primary) hypertension; E78.5 Hyperlipidemia, unspecified; K21.9 Gastro-esophageal reflux disease without esophagitis; E03.9 Hypothyroidism, unspecified; E83.42 Hypomagnesemia; K66.0 Peritoneal adhesions (postprocedural) (postinfection); K43.2 Incisional hernia without obstruction or gangrene

== ENCOUNTER 2018-07-26 13:13 | Emergency (ER) | payer BC ==
[~2018-07-26] VITALS: Ht 157.5 cm; Wt 84.1 kg
[~2018-07-26 13:13] MED LIST changes: +DOXYCYCLINE HY100 M2 PO; +HYDROCODON-ACE1 EAC7 PO; +LEVAQUIN250 MG PO
[2018-07-26 13:44] VITALS: Ht 157.5 cm; Wt 84.1 kg
[2018-07-26 14:12] LABS: BASOPHILS 0.2 % (0-2); EOSINOPHILS 0.6 % (0-7); HEMATOCRIT 31.6 % (36.0-48.0); IMMATURE GRANULOCYTES 0.3 % (0-5); LYMPHOCYTES 11.4 % (15-50); MCH 26.7 pg (26.0-34.0); MCHC 31.6 g/dL (31.0-37.0); MCV 84.3 fL (80.0-100.0); MEAN PLATELET VOLUME 9.2 fL (7.4-10.4); MONOCYTES 5.2 % (2-11); NEUTROPHILS 82.3 % (40-80); RBC 3.75 10x6/uL (4.00-5.40); RDW 16.7 % (11.5-14.5); WBC 19.3 10x3/uL (4.8-10.8)
[2018-07-26 14:13] LABS: PLATELET COUNT 425 10x3/uL (130-400)
[2018-07-26 14:26] LABS: ALBUMIN 2.5 g/dL (3.4-5.0); ANION GAP 12.5 mmol/L (8-16); BILIRUBIN - TOTAL 0.27 mg/dL (0.2-1.3); CALCIUM 8.8 mg/dL (8.5-10.1); CARBON DIOXIDE 27.6 mmol/L (21.0-32.0); CREATININE - SERUM 1.3 mg/dL (0.6-1.3); POTASSIUM - SERUM 4.1 mmol/L (3.5-5.1)
[2018-07-26 18:07] LABS: COLOR YELLOW (YELLOW)
[2018-07-26 18:08] LABS: APPEARANCE CLEAR (CLEAR); BILIRUBIN NEGATIVE (NEGATIVE); EPITHELIAL CELLS 0-5 /hpf (0-5); GLUCOSE NEGATIVE (NEGATIVE); KETONE NEGATIVE (NEGATIVE); NITRITE NEGATIVE (NEGATIVE); PROTEIN NEGATIVE (NEGATIVE); RED CELLS - URINE 0-5 /hpf (0-5); SPECIFIC GRAVITY 1.015 (1.005-1.020); UROBILINOGEN NORMAL (NORMAL)
[2018-07-26 18:09] LABS: BACTERIA FEW /hpf (NONE SEEN)
[2018-07-26] MEDS ORDERED: FLAGYL500 MG PO (19:57)
[2018-07-26] MEDS ORDERED: CIPRO500 MG PO (19:57)
[2018-07-26 20:12] VITALS: BP 107/83
== END 2018-07-26 20:13 | disposition home or self-care (01) ==
LOC: D.ER 13:13
PROVIDERS: Family Medicine
DX: K52.9 Noninfective gastroenteritis and colitis, unspecified (principal); E11.9 Type 2 diabetes mellitus without complications; I10 Essential (primary) hypertension

== ENCOUNTER 2018-08-14 17:20 | Emergency (ER) | payer BC ==
[~2018-08-14] VITALS: Ht 157.5 cm; Wt 85.0 kg
[~2018-08-14 17:20] MED LIST changes: +CIPRO500 MG PO; +FLAGYL500 MG PO
[2018-08-14 17:37] VITALS: Ht 157.5 cm; Wt 85.0 kg
[2018-08-14 18:18] LABS: BASOPHILS 0.4 % (0-2); EOSINOPHILS 3.1 % (0-7); HEMATOCRIT 30.9 % (36.0-48.0); HEMOGLOBIN 9.5 g/dL (12-16); IMMATURE GRANULOCYTES 0.4 % (0-5); LYMPHOCYTES 17.2 % (15-50); MCH 26.7 pg (26.0-34.0); MCHC 30.7 g/dL (31.0-37.0); MCV 86.8 fL (80.0-100.0); MEAN PLATELET VOLUME 9.4 fL (7.4-10.4); NEUTROPHILS 73.9 % (40-80); PLATELET COUNT 423 10x3/uL (130-400); RBC 3.56 10x6/uL (4.00-5.40); RDW 18.2 % (11.5-14.5); WBC 11.2 10x3/uL (4.8-10.8)
[2018-08-14 18:38] LABS: ALBUMIN 2.6 g/dL (3.4-5.0); ANION GAP 11.8 mmol/L (8-16); BILIRUBIN - TOTAL 0.22 mg/dL (0.2-1.3); CALCIUM 8.9 mg/dL (8.5-10.1); CARBON DIOXIDE 27.7 mmol/L (21.0-32.0); CREATININE - SERUM 0.9 mg/dL (0.6-1.3); POTASSIUM - SERUM 3.5 mmol/L (3.5-5.1); PROTEIN - SERUM 7.5 g/dL (6.4-8.2)
[2018-08-14 21:47] VITALS: BP 115/81
== END 2018-08-14 21:48 | disposition home or self-care (01) ==
LOC: D.ER 17:20
PROVIDERS: Emergency Medicine
DX: R10.31 Right lower quadrant pain (principal); D64.9 Anemia, unspecified; Z87.19 Personal history of other diseases of the digestive system

== ENCOUNTER → 2019-02-09 10:00 | Outpatient (CLI) | payer BC ==
[2018-08-14 17:37] VITALS: BMI 34.3
== END | disposition home or self-care (01) ==
LOC: D.MAMMO 01-19 11:00
PROVIDERS: ATTEND Family Medicine
DX: Z12.31 Encounter for screening mammogram for malignant neoplasm of breast (principal)

== ENCOUNTER 2020-03-14 12:45 | Outpatient (CLI) | payer BC ==
[2018-08-14 17:37] VITALS: BMI 34.3
== END 2020-03-14 23:59 | disposition home or self-care (01) ==
LOC: D.MAMMO 12:45
PROVIDERS: ATTEND Clinical Nurse Specialist Adult Health
DX: Z12.31 Encounter for screening mammogram for malignant neoplasm of breast (principal)

== ENCOUNTER 2020-03-29 12:53 | Emergency (ER) | payer BC, MEDICARE ==
[~2020-03-29] VITALS: Ht 157.5 cm; Wt 90.9 kg
[2020-03-29 13:07] VITALS: Ht 157.5 cm; Wt 90.9 kg
[2020-03-29 15:15] LABS: BASOPHILS 0.3 % (0-2); EOSINOPHILS 0.9 % (0-7); HEMOGLOBIN 13.4 g/dL (12-16); IMMATURE GRANULOCYTES 0.2 % (0-5); LYMPHOCYTES 29.1 % (15-50); MCH 29.8 pg (26.0-34.0); MCHC 32.7 g/dL (31.0-37.0); MCV 91.3 fL (80.0-100.0); MEAN PLATELET VOLUME 9.9 fL (7.4-10.4); MONOCYTES 5.9 % (2-11); NEUTROPHILS 63.6 % (40-80); RBC 4.49 10x6/uL (4.00-5.40); RDW 13.4 % (11.5-14.5); WBC 9.5 10x3/uL (4.8-10.8)
[2020-03-29 15:18] LABS: PLATELET COUNT 284 10x3/uL (130-400)
[2020-03-29 15:25] LABS: CALC OSMOLALITY 269 mosm/kg (275-300); CALCIUM 9.2 mg/dL (8.5-10.1); CARBON DIOXIDE 28.2 mmol/L (21.0-32.0); CHLORIDE - SERUM 101 mmol/L (98-107); CREATININE - SERUM 0.9 mg/dL (0.6-1.3); GLUCOSE 87 mg/dL (74-106); POTASSIUM - SERUM 3.9 mmol/L (3.5-5.1); SODIUM 135 mmol/L (136-145); UREA NITROGEN 16 mg/dL (7-18); eGFR NON AFRICAN AMERICAN 67 mL/min (90-120)
[2020-03-29 15:35] LABS: ALBUMIN 3.7 g/dL (3.4-5.0); ALKALINE PHOSPHATASE 91 U/L (30-120); ALT (SGPT) 21 U/L (10-68); AMYLASE - SERUM 37 U/L (25-115); BILIRUBIN - TOTAL 0.18 mg/dL (0.2-1.3); LIPASE 67 U/L (73-393); PROTEIN - SERUM 7.5 g/dL (6.4-8.2); TROPONIN-I < 0.017 ng/mL (0.000-0.060)
[2020-03-29 16:11] LABS: BILIRUBIN NEGATIVE (NEGATIVE); GLUCOSE NEGATIVE (NEGATIVE); KETONE NEGATIVE (NEGATIVE); NITRITE NEGATIVE (NEGATIVE); UROBILINOGEN NORMAL (NORMAL)
[2020-03-29 16:15] LABS: BACTERIA FEW /hpf (NEGATIVE); EPITHELIAL CELLS 0-5 /hpf (0-5); RED CELLS - URINE NONE SEEN /hpf (0-5); WHITE CELLS - URINE 0-5 /hpf (NEGATIVE)
[2020-03-29] MEDS ORDERED: MACROBID100 MG PO (17:36)
[2020-03-29 17:42] VITALS: BP 170/96
== END 2020-03-29 18:11 | disposition home or self-care (01) ==
LOC: D.ER 12:53
PROVIDERS: Family Medicine
DX: N39.0 Urinary tract infection, site not specified (principal); R10.30 Lower abdominal pain, unspecified; K43.9 Ventral hernia without obstruction or gangrene; E11.9 Type 2 diabetes mellitus without complications; E07.9 Disorder of thyroid, unspecified; I10 Essential (primary) hypertension; E78.5 Hyperlipidemia, unspecified; Z79.84 Long term (current) use of oral hypoglycemic drugs

== ENCOUNTER → 2021-01-09 08:48 | Outpatient (CLI) | payer BC ==
[2020-03-29 13:07] VITALS: BMI 36.6
[~2021-01-09 08:48] MED LIST changes: +MACROBID100 MG PO
== END | disposition home or self-care (01) ==
LOC: D.CT 08:48
PROVIDERS: ATTEND Nurse Practitioner
DX: K43.9 Ventral hernia without obstruction or gangrene (principal)

== ENCOUNTER 2021-02-08 19:51 | Emergency (ER) | payer BC, MEDICARE ==
[~2021-02-08] VITALS: Ht 157.5 cm; Wt 90.7 kg
[2021-02-08 20:10] VITALS: Ht 157.5 cm; Wt 90.7 kg
[2021-02-08 20:52] LABS: BASOPHILS 0.4 % (0-2); EOSINOPHILS 1.1 % (0-7); HEMATOCRIT 39.4 % (36.0-48.0); HEMOGLOBIN 13.1 g/dL (12-16); LYMPHOCYTES 24.3 % (15-50); MCH 29.3 pg (26.0-34.0); MCHC 33.3 g/dL (31.0-37.0); MEAN PLATELET VOLUME 7.7 fL (7.4-10.4); MONOCYTES 5.8 % (2-11); NEUTROPHILS 68.4 % (40-80); PLATELET COUNT 280 10x3/uL (130-400); RBC 4.48 10x6/uL (4.00-5.40); RDW 13.5 % (11.5-14.5); WBC 11.5 10x3/uL (4.8-10.8)
[2021-02-08 20:53] LABS: BILIRUBIN NEGATIVE (NEGATIVE); KETONE NEGATIVE mg/dL (< 1+); NITRITE NEGATIVE (NEGATIVE); SQUAMOUS EPITHELIAL <1 HPF (0-4); UROBILINOGEN NORMAL mg/dL (< 2); WHITE CELLS - URINE 1 HPF (0-4)
[2021-02-08 20:58] LABS: CALC OSMOLALITY 256 mosm/kg (275-300); CALCIUM 8.7 mg/dL (8.5-10.1); CARBON DIOXIDE 25.1 mmol/L (21.0-32.0); CHLORIDE - SERUM 94 mmol/L (98-107); CREATININE - SERUM 0.8 mg/dL (0.6-1.3); GLUCOSE 91 mg/dL (74-106); POTASSIUM - SERUM 4.1 mmol/L (3.5-5.1); SODIUM 129 mmol/L (136-145); UREA NITROGEN 7 mg/dL (7-18); eGFR NON AFRICAN AMERICAN 76 mL/min (90-120)
[2021-02-08 21:04] LABS: ALBUMIN 3.9 g/dL (3.4-5.0); ALKALINE PHOSPHATASE 88 U/L (30-120); ALT (SGPT) 25 U/L (10-68); PROTEIN - SERUM 7.7 g/dL (6.4-8.2)
[2021-02-08 22:00] VITALS: BP 155/84
== END 2021-02-09 01:40 | disposition home or self-care (01) ==
LOC: D.ER 19:51
PROVIDERS: Family Medicine
DX: E87.1 Hypo-osmolality and hyponatremia (principal); R51.9 Headache, unspecified